=== PATIENT | female | born 1965 | race Caucasian/White ===

== ENCOUNTER 2020-01-07 07:31 | Outpatient (CLI) | payer OTHER ==
--- NOTE | 2020-01-07 08:57 | CT ---
LOW DOSE CT SCAN OF CHEST WITHOUT IV CONTRAST FOR LUNG CANCER SCREENING: Date: 01/07/2020 HISTORY: Chronic cough. Current smoker for 40 years. FINDINGS: There is a 5 mm solid peripheral pleural based nodule in the right upper lobe. No pleural or pericardial effusions are seen. No pneumothoraces, or focal areas of consolidation are identified. There are mild degenerative changes in the spine. There is no evidence of aneurysmal dila tation of the thoracic aorta. There are cysts in the visualized portions of the liver measuring up to 17.0 mm. IMPRESSION: Lung-RADS Category 2 - Benign findings. RECOMMENDATION: 12 month follow-up LDCT of chest is recommended. POS: CURLY
== END 2020-01-07 07:32 | disposition home or self-care (01) ==
LOC: CT 07:31
PROVIDERS: ATTEND Internal Medicine
DX: Z12.2 Encounter for screening for malignant neoplasm of respiratory organs (principal); F17.210 Nicotine dependence, cigarettes, uncomplicated; R05 Cough; Z80.1 Family history of malignant neoplasm of trachea, bronchus and lung
CPT/HCPCS: G0297

== ENCOUNTER 2023-01-28 11:24 | Outpatient (CLI) | payer OTHER | END 2023-01-28 11:25 | disposition home or self-care (01) | LOC: BICMAMMO 11:24 | PROVIDERS: ATTEND Internal Medicine | DX: Z12.31 Encounter for screening mammogram for malignant neoplasm of breast (principal) | CPT/HCPCS: 77063; 77067 ==